=== PATIENT | female | born 1995 | race Caucasian/White ===

== ENCOUNTER 2020-05-31 23:35 | Observation (INO) | payer BC, SELFPAY ==
[2020-06-01 00:37] LABS: #Eosinphils 0.1 thou/uL (0.0-0.7); #Lymphocytes 1.9 thou/uL (1.20-3.40); #Monocytes 0.3 thou/uL (0.11-0.59); %Basophils 0.1 % (0.0-1.0); %Eosinophils 1.1 % (0.0-10.0); %Lymphocytes 20.2 % (21.0-51.0); %Monocytes 3.3 % (0.0-10.0); %Neutrophils 75.4 % (42.0-75.0); Mean Corpuscular HGB CONC 33.3 g/dL (32.0-36.0); Mean Corpuscular Hemoglobin 30.6 pg (27.0-31.0); Mean Corpuscular Volume 91.7 fL (78.0-98.0); Mean Platelet Volume 6.5 fL (7.4-10.4); Platelet Count 363 thou/uL (130-400); RBC Distribution Width 11.3 % (11.5-14.5); Red Blood Cell (RBC) Count 5.24 mill/uL (4.20-5.40); White Blood Cell (WBC) Count 9.3 thou/uL (4.8-10.8)
[2020-06-01 00:57] LABS: Acetaminophen Less than 6.0 mcg/mL (10.0-30.0); Alcohol Less than 10 mg/dL (Less than 10); Salicylate Less than 8.0 mg/dL (15.0-30.0)
[2020-06-01 00:58] LABS: ALT (SGPT) 58 U/L (8-55); AST (SGOT) 37 U/L (5-34); Albumin 4.7 g/dL (3.5-5.0); Alkaline Phosphatase 71 U/L (40-110); Anion Gap 19 mmol/L (10-20); BUN (Urea Nitrogen) 11 mg/dL (7.0-18.7); Bilirubin, Total 0.5 mg/dL (0.2-1.2); Calc. Creatinine Clearance 0 mL/min (70-130); Calcium 9.7 mg/dL (7.8-10.44); Carbon Dioxide 17 mmol/L (22-29); Chloride 105 mmol/L (98-107); Globulin 3.4 g/dL (2.4-3.5); Glucose 185 mg/dL (70-105); Potassium 4.4 mmol/L (3.5-5.1); Protein, Total 8.1 g/dL (6.0-8.3); Sodium 137 mmol/L (136-145)
[2020-06-01] MEDS ORDERED: Lorazepam 1 MG TAB ONE (02:16)
[2020-06-01 02:34] LABS: Acetaminophen Less than 6.0 mcg/mL (10.0-30.0)
[2020-06-01 03:20] LABS: Bilirubin Negative (Negative); Blood, Urine Negative (Negative); Clarity Clear (Clear); Glucose, Urine (Dipstick) 50 mg/dL (Negative); Ketone, Urine Negative (Negative); Leukocyte Negative Leu/uL (Negative); Nitrite Negative (Negative); Protein, Urine (Dipstick) Negative (Neg-Trace); Specific Gravity, Urine 1.009 (1.002-1.036); Urobilinogen Normal mg/dL (Less than 2); pH, Urine 6.5 (5.0-9.0)
[2020-06-01] MEDS ORDERED: Lorazepam 2 MG/ML VIAL ONE ×2 (03:23→05:09)
[2020-06-01 03:24] LABS: Pregnancy Test - Urine (BHCG) Negative (Negative); Pregu Control Background? CLEAR/WHITE (CLR/WHITE); Pregu Control Bar Appear? YES (CONTROL BAR); Specific Gravity 1.009 (1.002-1.036)
[2020-06-01 03:33] LABS: Amphetamine Not Detected (NotDetected); Barbiturates Screen Not Detected (NotDetected); Benzodiazepine Screen Not Detected (NotDetected); Cocaine Metabolite Screen Not Detected (NotDetected); Medtox Reader # READER 1; Methadone Not Detected (NotDetected); Methamphetamine Not Detected (NotDetected); Opiate Screen Not Detected (NotDetected); Oxycodone Screen Not Detected (NotDetected); Phencyclidine (PCP) Not Detected (NotDetected); THC/Cannabinoid Screen Not Detected (NotDetected); Tricyclic Screen Not Detected (NotDetected)
[2020-06-01 03:34] LABS: Medtox Control Line Valid? VALID (VALID)
[2020-06-01] MEDS ORDERED: Dextrose 5% in Water 1,000 ML IV PRN (03:55)
[2020-06-01] MEDS ORDERED: Dextrose 50% Abboject 50 ML SYRINGE SLOW IVP PRN (03:55)
[2020-06-01] MEDS ORDERED: HumaLOG 300 UNITS/3 ML VIAL SC PRN (03:55)
--- NOTE | 2020-06-01 04:06 | PDOC.HHP ---
Hospitalist HPI History of Present Illness: ADMISSION DATE: 06/01/2020 TIME OF ASSESSMENT: 0300 PRIMARY CARE PHYSICIAN: None CHIEF COMPLAINT: Intentional overdose HPI: This is a 24-year-old woman who was brought in from home after taking 50 tablets of NyQuil and drinking alcohol at home. The patient states that she took the first half at approximately 8 PM and took the other 2:30 hours later. Denies any vomiting. States that she feels "spaced out". Otherwise denies any complaints. States she did this intentionally and wanted to hurt herself. Denies any history of suicidal ideations in the past. Has not had any auditory or visual hallucinations. She was brought in by EMS and was noted to be tachycardic with a heart rate of 126. Sats were 99% on room air. She has remained ANO x4. 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 She has never attempted suicide in the past. Reports taking 3 shots of liquor. ED COURSE: Poison control was contacted and recommendations were made for continued observation overnight with monitoring for seizures, agitation and QRS widening. Recommendations given to treat with Bentyl, IV fluids and Ativan. Allergies/Adverse Reactions: Allergy/AdvReac Type Severity Reaction Status Date / Time No Known Drug Allergies Allergy Unverified 06/01/20 03:56 Past History: PAST MEDICAL HISTORY: 1. Anxiety 2. Depression 3. Hypertension 4. Diabetes mellitus PAST SURGICAL HISTORY: None SOCIAL HISTORY: Patient is and lives with her . Denies any tobacco use. Drinks socially on a weekly basis. Smokes marijuana. FAMILY HISTORY: Noncontributory ALLERGIES: No known drug allergies CURRENT MEDICATIONS: 1. Metformin 2. Metoprolol 3. Losartan Hospitalist Exam General Appearance: NAD, awake alert Eye: PERRL, anicteric sclera ENT: normocephalic atraumatic, no oropharyngeal lesions, moist mucosa Neck: supple, no lymphadenopathy Heart: RRR, normal peripheral pulses Respiratory: CTAB, no wheezes, no rales, no ronchi, normal chest expansion Gastrointestinal: soft, non-tender, non-distended, normal bowel sounds, no guarding, no rigidity Extremities: no edema Skin: normal turgor, no lesions, no rashes Neurological: cranial nerve grossly intact, normal sensation to touch, no weakness Musculoskeletal: normal tone, normal strength, no muscle wasting Psychiatric: A&O x 3, flat affect Hospitalist Results Result Diagrams: 06/01/20 00:27 06/01/20 00:27 Lab results: Laboratory Last Values WBC 9.3 thou/uL (4.8-10.8) 06/01/20 00:27 RBC 5.24 mill/uL (4.20-5.40) 06/01/20 00:27 Hgb 16.0 g/dL (12.0-16.0) 06/01/20 00:27 Hct 48.1 % (36.0-47.0) H 06/01/20 00:27 MCV 91.7 fL (78.0-98.0) 06/01/20 00: MCH 30.6 pg (27.0-31.0) 06/01/20 00: MCHC 33.3 g/dL (32.0-36.0) 06/01/20 00: RDW 11.3 % (11.5-14.5) L 06/01/20 00: Plt Count 363 thou/uL (130-400) 06/01/20 00: MPV 6.5 fL (7.4-10.4) L 06/01/20 00:27 Neutrophils % 75.4 % (42.0-75.0) H 06/01/20 00:27 Lymphocytes % 20.2 % (21.0-51.0) L 06/01/20 00:27 Monocytes % 3.3 % (0.0-10.0) 06/01/20 00:27 Eosinophils % 1.1 % (0.0-10.0) 06/01/20 00:27 Basophils % 0.1 % (0.0-1.0) 06/01/20 00:27 Neutrophils # 7.0 thou/uL (1.40-6.50) H 06/01/20 00:27 Lymphocytes # 1.9 thou/uL (1.20-3.40) 06/01/20 00:27 Monocytes # 0.3 thou/uL (0.11-0.59) 06/01/20 00:27 Eosinophils # 0.1 thou/uL (0.0-0.7) 06/01/20 00:27 Basophils # 0.0 thou/uL (0.0-0.2) 06/01/20 00:27 Sodium 137 mmol/L (136-145) 06/01/20 00:27 Potassium 4.4 mmol/L (3.5-5.1) 06/01/20 00:27 Chloride 105 mmol/L (98-107) 06/01/20 00:27 Carbon Dioxide 17 mmol/L (22-29) L 06/01/20 00:27 Anion Gap 19 mmol/L (10-20) 06/01/20 00:27 BUN 11 mg/dL (7.0-18.7) 06/01/20 00:27 Creatinine 0.78 mg/dL (0.6-1.1) 06/01/20 00:27 Estimated GFR (MDRD) Greater than 90 06/01/20 00:27 Glucose 185 mg/dL (70-105) H 06/01/20 00:27 Calcium 9.7 mg/dL (7.8-10.44) 06/01/20 00:27 Total Bilirubin 0.5 mg/dL (0.2-1.2) 06/01/20 00:27 AST 37 U/L (5-34) H 06/01/20 00:27 ALT 58 U/L (8-55) H 06/01/20 00:27 Alkaline Phosphatase 71 U/L (40-110) 06/01/20 00: Troponin I Less than 0.010 ng/mL (< 0.028) 06/01/20 00: Serum Total Protein 8.1 g/dL (6.0-8.3) 06/01/20 00:27 Albumin 4.7 g/dL (3.5-5.0) 06/01/20 00:27 Globulin 3.4 g/dL (2.4-3.5) 06/01/20 00: Albumin/Globulin Ratio 1.4 g/dL (1.2-2.2) 06/01/20 00:27 Urine Color Colorless (Yellow) 06/01/20 03:06 Urine Clarity Clear (Clear) 06/01/20 03:06 Urine pH 6.5 (5.0-9.0) 06/01/20 03:06 Ur Specific [place] 1.009 (1.002-1.036) 06/01/20 03:06 Ur Specific [place] 1.009 (1.002-1.036) 06/01/20 03:06 Urine Protein Negative mg/dL (Neg-Trace) 06/01/20 03:06 Urine Glucose (UA) 50 mg/dL (Negative) 06/01/20 03:06 Urine Ketones Negative mg/dL (Negative) 06/01/20 03:06 Urine Blood Negative (Negative) 06/01/20 03:06 Urine Nitrite Negative (Negative) 06/01/20 03:06 Urine Bilirubin Negative (Negative) 06/01/20 03:06 Urine Urobilinogen Normal mg/dL (Less than 2) 06/01/20 03:06 Ur Leukocyte Esterase Negative [place]/uL (Negative) 06/01/20 03:06 Urine Test Negative (Negative) 06/01/20 03:06 Salicylates Less than 8.0 mg/dL (15.0-30.0) L 06/01/20 00:27 Urine Opiates Screen Not Detected (NotDetected) 06/01/20 03:06 Ur Oxycodone Screen Not Detected (NotDetected) 06/01/20 03:06 Urine Methadone Screen Not Detected (NotDetected) 06/01/20 03:06 Ur Propoxyphene Screen Not Detected (NotDetected) 06/01/20 03:06 Acetaminophen Less than 6.0 mcg/mL (10.0-30.0) L 06/01/20 02:07 Ur Barbiturates Screen Not Detected (NotDetected) 06/01/20 03:06 Ur Tricyclics Screen Not Detected (NotDetected) 06/01/20 03:06 Ur Phencyclidine Scrn Not Detected (NotDetected) 06/01/20 03:06 Ur Amphetamines Screen Not Detected (NotDetected) 06/01/20 03:06 U Methamphetamines Scrn Not Detected (NotDetected) 06/01/20 03:06 U Benzodiazepines Scrn Not Detected (NotDetected) 06/01/20 03:06 U Cocaine Metab Screen Not Detected (NotDetected) 06/01/20 03:06 U Cannabinoids Screen Not Detected (NotDetected) 06/01/20 03:06 Drug Screen Comment () 06/01/20 03:06 Plasma Alcohol Less than 10 mg/dL (Less than 10) 06/01/20 00:27 Hospitalist H&P A/P (1) Suicidal overdose Code(s): T50.902A - POISONING BY UNSP DRUG/MEDS/BIOL SUBST, SELF-HARM, INIT S tatus: Acute (2) Suicidal ideation Code(s): R45.851 - SUICIDAL IDEATIONS Status: Acute (3) Hypertension Code(s): I10 - ESSENTIAL (PRIMARY) HYPERTENSION Status: Chronic (4) Type 2 diabetes mellitus Status: Chronic (5) Anxiety and depression Code(s): F41.9 - ANXIETY DISORDER, UNSPECIFIED; F32.9 - MAJOR DEPRESSIVE DISORDER, SINGLE EPISODE, UNSPECIFIED Status: Chronic (6) Obesity Code(s): E66.9 - OBESITY, UNSPECIFIED Status: Chronic Plan: Admitted for observation overnight Continue Ativan IV prn Will need [facility] evaluation once medically cleared Monitor glucose ISS initiated Monitor BP IV fluids ordered Raphael catheter placed in ED for strict I/Os CODE STATUS FULL
[2020-06-01] MEDS ORDERED: Lorazepam 2 MG/ML VIAL SLOW IVP PRN (04:27)
[2020-06-01] MEDS ORDERED: Lorazepam 2 MG/ML VIAL SLOW IVP SCH (04:30)
[2020-06-01 06:26] VITALS: BMI 41.8
[2020-06-01] MEDS ORDERED: Ziprasidone 20 MG VIAL ONE (06:30)
[2020-06-01] MEDS ORDERED: Ziprasidone 20 MG VIAL IM SCH ×2 (06:30)
[2020-06-01] MEDS ORDERED: Sterile Water 10 ML VIAL FS PRN (06:30)
[2020-06-01] MEDS ORDERED: Sterile Water 10 ML ONE (06:30)
--- NOTE | 2020-06-01 07:38 | RAD ---
CHEST 1 VIEW: Date: 06/01/2020 INDICATION: Chest pain COMPARISON: None. IMPRESSION: No acute cardiopulmonary abnormality. COMMENTS: Lungs are clear. Heart size is normal. No pleural effusion or pneumothorax evident. No acute osseous abnormality is evident. POS: BH
--- NOTE | 2020-06-01 11:11 | PDOC.BPN ---
- Brief Progress Note Pt is medically stable, AOX3 and should be able to communicate with MD[facility]. medically cleared for their evaluation.
--- NOTE | 2020-06-01 15:46 | PDOC.HOSPP ---
- Subjective Encounter Date: 06/01/20 Encounter Time: 11:40 Subjective: Patient seen in the ER. Sitter at bedside. She appears well. Alert oriented x3. [facility] evaluated her. - Objective Vital Signs & Weight: Weight Weight 275 lb 0.074 oz Result Diagrams: 06/01/20 00:27 06/01/20 00:27 Hospitalist Exam Vitals: Weight Weight 275 lb 0.074 oz General Appearance: NAD, awake alert Eye: PERRL ENT: normocephalic atraumatic Neck: supple Heart: RRR, normal peripheral pulses Respiratory: CTAB, normal chest expansion Gastrointestinal: soft, normal bowel sounds Neurological: cranial nerve grossly intact, no focal deficits Psychiatric: normal affect, normal behavior, A&O x 3 Hosp A/P - Plan Suicidal overdose Code(s): T50.902A - POISONING BY UNSP DRUG/MEDS/BIOL SUBST, SELF-HARM, INIT Status: Acute (2) Suicidal ideation Code(s): R45.851 - SUICIDAL IDEATIONS Status: Acute (3) Hypertension Code(s): I10 - ESSENTIAL (PRIMARY) HYPERTENSION Status: Chronic (4) Type 2 diabetes mellitus Status: Chronic (5) Anxiety and depression Code(s): F41.9 - ANXIETY DISORDER, UNSPECIFIED; F32.9 - MAJOR DEPRESSIVE DISORDER, SINGLE EPISODE, UNSPECIFIED Status: Chronic (6) Obesity Code(s): E66.9 - OBESITY, UNSPECIFIED Status: Chronic -Medically stable to be evaluated by [facility] VINNY Lynn from [facility] evaluated her I talked to her at [phone] It appears that patient would benefit with inpatient psych evaluation. Possible transfer to the inpatient psych facility probably tomorrow Also it seems patient is not completely willing to go to the inpatient psych. Will address again tomorrow.
[2020-06-01] MEDS: HumaLOG 300 UNITS/3 ML VIAL SC PRN (18:01)
[2020-06-02 05:30] LABS: #Basophils 0.1 thou/uL (0.0-0.2); #Eosinphils 0.2 thou/uL (0.0-0.7); #Lymphocytes 3.4 thou/uL (1.20-3.40); #Monocytes 0.5 thou/uL (0.11-0.59); #Neutrophils 5.2 thou/uL (1.40-6.50); %Basophils 0.7 % (0.0-1.0); %Eosinophils 2.3 % (0.0-10.0); %Neutrophils 55.9 % (42.0-75.0); Hemoglobin 14.5 g/dL (12.0-16.0); Mean Corpuscular HGB CONC 32.5 g/dL (32.0-36.0); Mean Corpuscular Volume 92.3 fL (78.0-98.0); Mean Platelet Volume 6.6 fL (7.4-10.4); Platelet Count 364 thou/uL (130-400); RBC Distribution Width 11.6 % (11.5-14.5); Red Blood Cell (RBC) Count 4.84 mill/uL (4.20-5.40); White Blood Cell (WBC) Count 9.3 thou/uL (4.8-10.8)
[2020-06-02 05:44] LABS: Anion Gap 16 mmol/L (10-20); BUN (Urea Nitrogen) 15 mg/dL (7.0-18.7); Calc. Creatinine Clearance 214 mL/min (70-130); Calcium 9.6 mg/dL (7.8-10.44); Carbon Dioxide 21 mmol/L (22-29); Chloride 104 mmol/L (98-107); Glucose 154 mg/dL (70-105); Potassium 4.1 mmol/L (3.5-5.1); Sodium 137 mmol/L (136-145)
[2020-06-02] MEDS ORDERED: glipiZIDE 10 MG TAB PO SCH (09:00)
[2020-06-02] MEDS ORDERED: metFORMIN 500 MG TAB PO SCH (09:00)
[2020-06-02] MEDS ORDERED: Losartan 25 MG TAB PO SCH ×2 (09:15→10:15)
[2020-06-02] MEDS: HumaLOG 300 UNITS/3 ML VIAL SC PRN ×2 (11:51→18:11)
--- NOTE | 2020-06-02 13:26 | PDOC.HOSPP ---
- Subjective Encounter Date: 06/02/20 Encounter Time: 09:35 Subjective: Patient seen with sitter at bedside. She has no acute complaints or concerns this morning waiting for mental health visitation. Discussed with RN. - Objective Vital Signs & Weight: Vital Signs (12 hours) Temp Pulse Resp BP Pulse Ox 06/02/20 11:40 97.9 F 116 H 18 133/91 H 100 06/02/20 07:00 97.2 F L 99 16 136/86 100 06/02/20 03:00 97.9 F 89 18 117/72 Weight Weight 275 lb 0.074 oz Result Diagrams: 06/02/20 04:20 06/02/20 04:20 Additional Labs: Accuchecks 06/02/20 06/02/20 06/02/20 11:46 10:00 05:49 POC Glucose 199 H 237 H 156 H 06/01/20 06/01/20 21:11 17:40 POC Glucose 153 H 209 H Hospitalist ROS - Medication Medications: Active Medications Generic Name Dose Route Start Last Admin Trade Name Freq PRN Reason Stop Dose Admin Insulin Human Lispro 0 units 06/01/20 03:55 06/02/20 11:51 Humalog 300 Units/3 Ml Vial SC 2 unit .MILD SLIDING SCALE PRN Administration Mild Correctional Scale Losartan Potassium 25 mg 06/02/20 10:15 06/02/20 10:23 Losartan 25 Mg Tab PO 06/02/20 14:00 25 mg NOW KRISHNA Administration Hospitalist Exam Vitals: Vital Signs (12 hours) Temp Pulse Resp BP Pulse Ox 06/02/20 11:40 97.9 F 116 H 18 133/91 H 100 06/02/20 07:00 97.2 F L 99 16 136/86 100 06/02/20 03:00 97.9 F 89 18 117/72 Weight Weight 275 lb 0.074 oz General Appearance: NAD, awake alert Eye: PERRL ENT: normocephalic atraumatic Neck: supple Heart: RRR, normal peripheral pulses Respiratory: CTAB, normal chest expansion Gastrointestinal: soft, normal bowel sounds Neurological: cranial nerve grossly intact, no focal deficits Psychiatric: A&O x 3 Hosp A/P - Plan Suicidal overdose Code(s): T50.902A - POISONING BY UNSP DRUG/MEDS/BIOL SUBST, SELF-HARM, INIT Status: Acute (2) Suicidal ideation Code(s): R45.851 - SUICIDAL IDEATIONS Status: Acute (3) Hypertension Code(s): I10 - ESSENTIAL (PRIMARY) HYPERTENSION Status: Chronic (4) Type 2 diabetes mellitus Status: Chronic (5) Anxiety and depression Code(s): F41.9 - ANXIETY DISORDER, UNSPECIFIED; F32.9 - MAJOR DEPRESSIVE DISORDER, SINGLE EPISODE, UNSPECIFIED Status: Chronic (6) Obesity Code(s): E66.9 - OBESITY, UNSPECIFIED Status: Chronic -Medically stable to be evaluated by [facility] VINNY Lynn from [facility] evaluated her I talked to her at [phone] It appears that patient would benefit with inpatient psych evaluation. Possible transfer to the inpatient psych facility probably tomorrow Also it seems patient is not completely willing to go to the inpatient psych. Will address again tomorrow. 8th = Pending mental health visitation.
[2020-06-03] MEDS ORDERED: glipiZIDE 10 MG TAB PO SCH (07:30)
[2020-06-03] MEDS ORDERED: metFORMIN 500 MG TAB PO SCH (08:00)
[2020-06-03] MEDS ORDERED: Losartan 25 MG TAB PO SCH ×2 (09:00)
[2020-06-03] MEDS: HumaLOG 300 UNITS/3 ML VIAL SC PRN (11:52)
--- NOTE | 2020-06-03 12:43 | PDOC.DS.DS ---
Provider Date of Admission: 06/01/20 03:40 Admitting Provider: Alireza Wolff MD Primary Care Physician: Unknown Course Hospital Course: 24-year-old female presented after taking 50 tablets of NyQuil and drinking alcohol at home. The patient states that she took the first half at approximately 8 PM and took the other 2:30 hours later. Denies any vomiting. States that she feels "spaced out". States she did this intentionally and wanted to hurt herself. Suicidal overdose Code(s): T50.902A - POISONING BY UNSP DRUG/MEDS/BIOL SUBST, SELF-HARM, INIT Status: Acute Supportive measures adopted. (2) Suicidal ideation Code(s): R45.851 - SUICIDAL IDEATIONS Status: Acute (3) Hypertension Code(s): I10 - ESSENTIAL (PRIMARY) HYPERTENSION Status: Chronic (4) Type 2 diabetes mellitus Status: Chronic (5) Anxiety and depression Code(s): F41.9 - ANXIETY DISORDER, UNSPECIFIED; F32.9 - MAJOR DEPRESSIVE DISORDER, SINGLE EPISODE, UNSPECIFIED Status: Chronic (6) Obesity Code(s): E66.9 - OBESITY, UNSPECIFIED Status: Chronic Leah from [facility] evaluated her I talked to her at [phone]/Dr. Reddy and they accepted her patient will be transferred to the inpatient psych facility today. It appears that patient would benefit with inpatient psych evaluation. Possible transfer to the inpatient psych facility probably tomorrow Also it seems patient is not completely willing to go to the inpatient psych. Will address again tomorrow. Resuscitation Status: 06/01/20 03:53 Resuscitation Status Routine Co-Sign Provider: Resuscitation Status: FULL: Full Resuscitation Lab Results: 06/02/20 04:20 06/02/20 04:20 Abnormal Lab Results - Last 48 hrs 06/02/20 04:20: Carbon Dioxide 21 L 06/02/20 04:20: MPV 6.6 L Vitals: Vital Signs (12 hours) Temp Pulse Resp BP BP Pulse Ox 06/03/20 11:43 98.6 F 105 H 20 127/86 96 06/03/20 07:45 98.5 F 92 18 116/73 98 06/03/20 04:19 98.5 F 92 20 121/80 98 Weight Weight 275 lb 0.074 oz Physical Exam: The patient was seen and examined on the day of discharge. Patient has no new complaints sitter at bedside. Patient feels that she prefers to go home and outpatient follow-up. However that is not likely as she needs to be transferred to inpatient psych [facility]. Plan Home Medications: Medication Instructions Recorded Confirmed Type Losartan [Cozaar] 20 mg PO DAILY 06/01/20 06/01/20 History Metoprolol Succinate [Toprol XL] 50 mg PO DAILY 06/01/20 06/01/20 History Venlafaxine HCl 75 mg PO DAILY 06/01/20 06/01/20 History glipiZIDE 10 mg PO DAILY-AC 06/01/20 06/01/20 History metFORMIN [Glucophage] 500 mg PO QAM-WM 06/01/20 06/01/20 History Allergies: No Known Drug Allergies Allergy (Verified 06/01/20 04:38) PER ER NOTES Activity:: Activity as Tolerated Nourishment:: Regular Diet Referrals: Unknown,Unknown [Primary Care Provider] - Disposition: OTHER HOSPITAL IN [place] [facility] MEASURES:: N/A
[2020-06-03 14:59] VITALS: BP 133/89; TEMP 98.7
== END 2020-06-03 15:30 | disposition short-term general hospital (02) ==
LOC: ERS 23:35 → ERHOLD 06-01 03:40 → 2NO 06-01 16:19
PROVIDERS: ADMIT Internal Medicine; ATTEND Internal Medicine
DX: T39.1X2A Poisoning by 4-Aminophenol derivatives, intentional self-harm, initial encounter (principal); T48.3X2A Poisoning by antitussives, intentional self-harm, initial encounter; T45.0X2A Poisoning by antiallergic and antiemetic drugs, intentional self-harm, initial encounter; R00.0 Tachycardia, unspecified; R45.851 Suicidal ideations; I10 Essential (primary) hypertension; E11.9 Type 2 diabetes mellitus without complications; F41.9 Anxiety disorder, unspecified; F32.9 Major depressive disorder, single episode, unspecified; F12.10 Cannabis abuse, uncomplicated; E66.9 Obesity, unspecified; Z68.41 Body mass index [BMI] 40.0-44.9, adult; Z79.84 Long term (current) use of oral hypoglycemic drugs; Z79.899 Other long term (current) drug therapy
CPT/HCPCS: 36415; 36416; 51702; 71045; 80048; 80053; 80143; 80306; 80307; 81003; 81025; 84484; 85025; 93005; 96372; 96374; 96376; G0378; J1815; J2060; J3486